=== PATIENT | male | born 1950 | race Caucasian/White ===

== ENCOUNTER 2023-08-06 15:29 | Emergency (ER) | payer MEDICARE, SELFPAY ==
--- NOTE | 2023-08-06 15:39 | ED.EYEPROB ---
HPI - Eye Problem General Chief complaint: Eye Problems Stated complaint: Right Eye Irritation Source: patient Mode of arrival: ambulatory Limitations: no limitations History of Present Illness HPI Narrative: 72-year-old male presented for complaint of right eye irritation over the past 3 days. Endorses lower lid swelling, mild itching. Denies injury, foreign body, vision changes, photophobia, or drainage. MD chief complaint: eye pain Related Data Home Medications Medication Instructions Recorded Confirmed hydroxychloroquine 200 mg tablet 200 mg PO BID 08/06/23 08/06/23 lisinopril 20 1 tablet PO DAILY 08/06/23 08/06/23 mg-hydrochlorothiazide 25 mg tablet prednisone 50 mg tablet 50 mg PO DAILY 08/06/23 08/06/23 tamsulosin 0.4 mg capsule 0.4 mg PO BID 08/06/23 08/06/23 Allergies Allergy/AdvReac Type Severity Reaction Status Date / Time No Known Allergies Allergy Verified 08/06/23 15:49 Review of Systems Review of Systems: CONSTITUTIONAL: Denies body aches, fever, chills EYES:Endorses swelling, redness and pain to right eye; Denies visual changes, FB sensation, photophobia ENT: Denies rhinorrhea, congestion, sore throat, or otalgia. CARDIOVASCULAR: Denies chest pain, palpitations RESPIRATORY: Denies cough or dyspnea. SKIN: Denies rash, itching, or wounds. MUSCULOSKELETAL: Denies back pain, joint pain, or myalgia. NEUROLOGIC: Denies headache, numbness, tingling, or weakness. All systems reviewed & are unremarkable except as noted in HPI and below PMFSH Past Medical History Medical History (Updated 08/06/23 @ 15:53 by Janel Rashid APRN) HTN (hypertension) Lupus Comments At time of signature, I have reviewed and agree with nursing past medical, surgical, social and family history unless otherwise noted. Please see nursing chart for further information. There is no relevant family history pertinent to the presenting complaint Exam Narrative: GENERAL: Well-appearing HEAD: Normocephalic, atraumatic. EYES: right lower eye lid swelling/redness c/w stye. No conjunctival injection or drainage. PERRLA, EOMI. Lid eversion Shows no FB. ENT: Mucous membranes pink and moist. No rhinorrhea. CHEST: Clear to auscultation. HEART: Regular rate and rhythm. ABDOMEN: Soft, nontender, nondistended SKIN: Warm, dry, no rash. Normal skin turgor. NEURO: No focal deficits. Alert and oriented x3 PSYCH: Normal affect. Course Course Emergency Course: Patient is aware of diagnosis, understands and agrees to treatment plan. Anticipatory guidance given. Patient agrees to follow-up as directed and is aware of reasons to seek care at the emergency department. Portions of this record may have been created with voice recognition software Level of Care: Express Care Visit MDM - Eye Problem MDM Narrative Medical decision making narrative: Discussed physical exam findings c/w stye. Advised supportive measures and signs/symptoms to go to the ER. Pt is appropriate for outpt treatment and f/u. Differential Diagnosis Differential diagnosis: Likely corneal abrasion, conjunctivitis, periorbital cellulitis, subconjunctival hemorrhage, corneal ulcer and other Discharge Plan Discharge Clinical Impression: External hordeolum Patient Disposition: Home, Self-Care Condition: Stable Instructions: Antibiotic [place] (ED) Additional Instructions: Apply warm, moist compresses on the affected area frequently (for 5 to 10 minutes five times per day) in order to help with drainage. Massage and gentle wiping of the affected eyelid after the warm compress can also help with drainage. You can use baby shampoo to wash the eye area Avoid wearing eye makeup or contact lenses Tylenol as needed for pain If the lesion does not improve within one week, please follow up with an [employer] records clerk for further management. Go to the ER for any worsening symptoms or concerns Follow-up/Referrals: PHYSICIAN,ON
[2023-08-06 15:40] VITALS: BP 128/66; PULSE 65; RESP 16; TEMP 36.9; O2SAT 98
== END 2023-08-06 15:54 | disposition home or self-care (01) ==
PROVIDERS: Emergency Provider Nurse Practitioner Family
DX: H00.012 Hordeolum externum right lower eyelid (principal); I10 Essential (primary) hypertension; M32.9 Systemic lupus erythematosus, unspecified; M06.9 Rheumatoid arthritis, unspecified; Z85.46 Personal history of malignant neoplasm of prostate
CPT/HCPCS: 99212; G0463